=== PATIENT | male | born 1935 | race African-American/Black ===

== ENCOUNTER 2021-05-11 17:04 | Inpatient (IN) | payer MEDICARE, OTHER ==
[~2021-05-11] VITALS: Ht 180.3 cm; Wt 68.0 kg
--- NOTE | 2021-05-11 17:47 | PHYS DOC ---
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 Patient has a history of Alzheimer's/dementia majority of the history comes from EMS and from the lead technologist in cytogenetics at the bedside. Field Advisor at the bedside said that patient normally with assistance will ambulate to the bathroom, and will use the restroom and then ambulate back to the bed with assistance, today caregiver was not at the house a grandson was at the house and patient attempted to get out of bed by himself and fell. Grandson was unable to get the patient off the ground then called 911. While 911 was at the scene patient had a hypotensive episode, saline lock was started and IV fluids of LR 500 mg bolus was given. Per the lead technologist in cytogenetics patient has a history of a stroke in the with the second 1 in the , patient has had severe right sided contractures and weakness due to his strokes and needs full-time care. [facility] but [facility]. Patient is blind and has severe dysarthria from his stroke. Most of the history for this patient was obtained from the lead technologist in cytogenetics at the bedside (KOMAL NEWELL APRN) Review of Systems: Review of Systems: Constitutional: Denies fever or chills Eyes: Denies change in visual acuity HENT: Denies nasal congestion or sore throat Respiratory: Denies cough or shortness of breath Cardiovascular: Denies chest pain or edema GI: Denies abdominal pain, nausea, vomiting, bloody stools or diarrhea : Denies dysuria Musculoskeletal: Denies back pain or joint pain Integument: Denies rash Neurologic: Denies headache, focal weakness or sensory changes Endocrine: Denies polyuria or polydipsia Lymphatic: Denies swollen glands Psychiatric: Denies depression or anxiety Hypotension (KOMAL NEWELL APRN) Current Medications: Current Meds: Nifedipine 90 mg Choleca/cif 25mg lisinopril 40mg rosuvastatin 40mg ensure (KOMAL NEWELL BUILDING EQUIPMENT INSPECTOR) Allergies: Allergies: Allergies Coded Allergies Type Severity Reaction Last Updated Verified No Known Drug Allergies 05/11/21 No (KOMAL NEWELL APRN) Physical Exam: PE: Constitutional: Well developed, well nourished, no acute distress, non-toxic appearance. [] HENT: Normocephalic, atraumatic, bilateral external ears normal, oropharynx moist, no oral exudates, nose normal, no teeth [] Eyes: PERRLA, EOMI, conjunctiva normal, no discharge. [] Neck: Normal range of motion, no tenderness, supple, no stridor, no midline tenderness [] Cardiovascular:Heart rate regular rhythm, no murmur [] Lungs & Thorax: Bilateral breath sounds clear to auscultation [] Abdomen: Bowel sounds normal, soft, no tenderness, no masses, no pulsatile masses. [] Skin: Warm, dry, no erythema, no rash. [] Back: No tenderness, no CVA tenderness. [] Extremities: Inspection and palpation of all extremities was completed no lacerations, abrasions, contusions, or ecchymosis was noted, 2+ pulses through out the extremities, patient does have the right arm which is contracted to his chest, normal for his for this patient. No pain with pressure along the pelvic rim and over the symphysis pubis. Neurologic: Alert and oriented to self, right arm is contracted to his chest, will clenched fist when asked but unable to perform extension and flexion of the arm, ambulation was deferred at this time due to fall Psychologic: Affect normal, judgement abnormal patient does not have good judgment due to dementia, mood normal. [] (KOMAL NEWELL BUILDING EQUIPMENT INSPECTOR) Current Patient Data: Labs: Laboratory Tests Test 05/11/21 17:45 White Blood Count 6.4 x10^3/uL Red Blood Count 3.56 x10^6/uL Hemoglobin 11.9 g/dL Hematocrit 36.5 % Mean Corpuscular Volume 102 fL Mean Corpuscular Hemoglobin 33 pg Mean Corpuscular Hemoglobin Concent 33 g/dL Red Cell Distribution Width 13.6 % Platelet Count 219 x10^3/uL Neutrophils (%) (Auto) 53 % Lymphocytes (%) (Auto) 36 % Monocytes (%) (Auto) 8 % Eosinophils (%) (Auto) 2 % Basophils (%) (Auto) 1 % Neutrophils # (Auto) 3.4 x10^3uL Lymphocytes # (Auto) 2.3 x10^3/uL Monocytes # (Auto) 0.5 x10^3/uL Eosinophils # (Auto) 0.1 x10^3/uL Basophils # (Auto) 0.1 x10^3/uL Sodium Level 141 mmol/L Potassium Level 4.9 mmol/L Chloride Level 107 mmol/L Carbon Dioxide Level 25 mmol/L Anion Gap 9 Blood Urea Nitrogen 23 mg/dL Creatinine 1.5 mg/dL Estimated GFR (Cockcroft-Gault) 53.7 BUN/Creatinine Ratio 15 Glucose Level 101 mg/dL Calcium Level 8.9 mg/dL Total Bilirubin 0.2 mg/dL Aspartate Amino Transf (AST/SGOT) 16 U/L Alanine Aminotransferase (ALT/SGPT) 15 U/L Alkaline Phosphatase 58 U/L Troponin I High Sensitivity 13 ng/L Total Protein 7.3 g/dL Albumin 3.6 g/dL Albumin/Globulin Ratio 1.0 Vital Signs: Vital Signs Date Time Temp Pulse Resp B/P (MAP) Pulse Ox O2 Delivery O2 Flow Rate FiO2 05/11/21 21:10 81 19 120/66 (84) 98 Room Air 05/11/21 20:30 80 18 112/53 (72) 99 Room Air 05/11/21 19:53 70 18 115/68 (84) 100 Room Air 05/11/21 18:45 69 16 115/66 (82) 100 Room Air 05/11/21 18:06 63 18 93/65 (74) 98 Room Air 05/11/21 17:34 70 20 100/70 (80) 98 Room Air 05/11/21 17:18 98.1 76 20 119/42 (67) 100 Room Air Vital Signs Date Time Temp Pulse Resp B/P (MAP) Pulse Ox O2 Delivery O2 Flow Rate FiO2 05/11/21 17:18 98.1 76 20 119/42 (67) 100 Room Air Vital Signs Date Time Temp Pulse Resp B/P (MAP) Pulse Ox O2 Delivery O2 Flow Rate FiO2 05/11/21 17:18 98.1 76 20 119/42 (67) 100 Room Air (KOMAL NEWELL BUILDING EQUIPMENT INSPECTOR) EKG: EK EKG done read by Dr. Suggs at 1716 no STEMI heart rate of 65 interpretation is sinus rhythm MT interval 136 ms with a QT interval of 368 ms [] (KOMAL NEWELL APRN) Radiology/Procedures: Radiology/Procedures: REASON: fall PROCEDURE: CT HEAD AND CERVICAL SPINE WO EXAM: CT HEAD WITHOUT IV CONTRAST CLINICAL HISTORY: Reason: fall / Spl. Instructions: / History: COMPARISON: None. TECHNIQUE: Routine CT of the head without contrast. Soft tissues and bone windows were reviewed. PQRS compliance statement - One or more of the following individualized dose reduction techniques were utilized for this study: 1. Automated exposure control 2. Adjustment of the mA and/or kV according to patient size 3. Use of iterative reconstruction technique FINDINGS: There is no evidence of hemorrhage, mass or extra-axial fluid collection. Aburto-white differentiation is maintained with no evidence of edema. Subcortical, periventricular as well as deep white matter foci of hypoattenuation likely changes of chronic small vessel disease. Old infarct left parietotemporal region with associated encephalomalacia. There is no mass effect or shift of the intracranial structures. Diffuse dural based calcifications are seen. The ventricles and cerebral sulci are prominent for the patients stated age consistent with generalized cerebral volume loss. The cerebellum and brainstem are unremarkable. The calvarium demonstrates no evidence of fracture or focal lesion. There is normal aeration of the visualized paranasal sinuses and mastoid air cells. The visualized portions of the orbits are normal.Atherosclerotic calcifications of the intracranial internal carotid and vertebral arteries is seen. IMPRESSION: 1. No evidence for acute intracranial process. 2. The ventricles and cerebral sulci are prominent for the patients stated age consistent with generalized cerebral volume loss 3. White matter change likely chronic small vessel disease. Rounded lucency in the subcortical white matter of the left parietotemporal region likely from prior infarct and encephalomalacia. EXAM: CT CERVICAL SPINE WITHOUT IV CONTRAST CLINICAL HISTORY: Reason: fall / Spl. Instructions: / History: COMPARISON: None available. TECHNIQUE: Helical CT of the cervical spine was performed. Axial, coronal and sagittal reformatted images were also performed. PQRS compliance statement - One or more of the following individualized dose reduction techniques were utilized for this study: 1. Automated exposure control 2. Adjustment of the mA and/or kV according to patient size 3. Use of iterative reconstruction technique FINDINGS: Vertebral body heights are preserved. Mild C2-3, C3-4 and moderate to severe C5-6, C6-7 and C7-T1 disc height loss. Trace anterolisthesis of C7 on T1 likely degenerative. Otherwise no spondylolisthesis. IMPRESSION: 1. Multilevel spondylosis as above 2. Negative acute fracture. 3. Trace anterolisthesis of C7 on T1 likely degenerative. Electronically signed by: Hilton Shaw MD (05/11/2021 7:03 PM) [facility] DICTATED AND SIGNED BY: HILTON SHAW MD DATE: 05/11/211855 CC: MERARI VELASQUEZ MD; KOMAL NEWELL APRN; PCP,UNKNOWN ~MTH0 0 REASON: fall PROCEDURE: CT CHEST ABDOMEN PELVIS WO EXAM: CT Chest, Abdomen and Pelvis without IV contrast CLINICAL HISTORY: Fall, pain COMPARISON: None. TECHNIQUE: Helical CT of the chest, abdomen and pelvis was performed without intravenous contrast. Axial, coronal and sagittal reformatted images were generated. ---PQRS compliance statement - One or more of the following individualized dose reduction techniques were utilized for this study: 1. Automated exposure control 2. Adjustment of the mA and/or kV according to patient size 3. Use of iterative reconstruction technique--- FINDINGS: Lack of intravenous contrast limits evaluation of solid organs, vasculature, and lymph nodes. Chest: Emphysematous changes are seen. Interstitial prominence particularly in the lung bases and upper lungs. No suspicious lung nodule or mass is seen. No lobar consolidation. Heart is not enlarged. Coronary calcifications are seen. No pericardial effusion. No pleural effusion. No pneumothorax. No axillary lymphadenopathy. No mediastinal or hilar lymphadenopathy. A few mildly prominent mediastinal lymph nodes are likely physiologic. Abdomen and Pelvis: No focal liver lesion. Gallbladder is normal. No biliary ductal dilatation. Pancreas is unremarkable. Spleen is normal in appearance. Adrenal glands are unremarkable. Multiple bilateral renal cysts are seen. No hydronephrosis. No hydroureter. Bladder is unremarkable. Prostate is mildly enlarged measuring 5.6 cm in transverse dimension. Calcifications are seen within the prostate. Aortobiiliac atherosclerotic calcifications are seen. No abdominal or pelvic lymphadenopathy. No free or loculated abdominal or pelvic collection is seen. Moderate to large volume colonic stool content is seen. No small or large bowel dilatation. Appendix is normal. No retroperitoneal hematoma is identified. No aggressive osseous lesion is seen. Sclerotic lesion right first rib measures approximately 1000 Hounsfield units, favored to represent bone island. Leftward curvature of the lower lumbar spine. Rightward curvature of the thoracic spine. Multilevel degenerative changes of spine are seen. IMPRESSION: No CT evidence for acute thoracic, abdominal or pelvic trauma. Incidental findings as above. Electronically signed by: Hilton Shaw MD (05/11/2021 7:32 PM) [facility] [] (KOMAL NEWELL APRN) Heart Score: C/O Chest Pain: N/A Risk Factors: Risk Factors: DM, Current or recent (<one month) smoker, HTN, HLP, family history of CAD, obesity. Risk Scores: Score 0 - 3: 2.5% MACE over next 6 weeks - Discharge Home Score 4 - 6: 20.3% MACE over next 6 weeks - Admit for Clinical Observation Score 7 - 10: 72.7% MACE over next 6 weeks - Early Invasive Strategies (KOMAL NEWELL APRN) Course & Med Decision Making: Course & Med Decision Making Pertinent Labs and Imaging studies reviewed. (See chart for details) 2000 spoke to and patient informed them of the laboratory and radiological findings due to the unusual nature of the fall is the best interest of the patient to admit patient for further evaluation by the primary care team. is the primary decision maker for the patient and she is agreeable to admission. Spoke to Dr. Marie who is a the hospitalist on-call and he has accepted the patient for admission, he would like 1 more liter of IV fluids to be given and then a maintenance fluids of 100 mL an hour of normal saline to be infused and he would like to hold all of his blood pressure medications at this time] (KOMAL NEWELL APRN) Course & Med Decision Making Did not see or evaluate patient. Did not discuss patient with MICROFILMER. Agree with MICROFILMER's work-up and disposition per note. (MERARI VELASQUEZ MD) Arlene Disclaimer: Dragon Disclaimer: This electronic medical record was generated, in whole or in part, using a voice recognition dictation system. (KOMAL NEWELL APRN) Departure Departure: Impression: Primary Impression: Hypotension Qualified Codes: I95.9 - Hypotension, unspecified Additional Impressions: Syncope Qualified Codes: R55 - Syncope and collapse Fall Qualified Codes: W19.XXXA - Unspecified fall, initial encounter Disposition: ADMITTED INPATIENT Admitting Physician: Najma Jones (KOMAL NEWELL APRN) Condition: STABLE Referrals: PCP,UNKNOWN (PCP) KOMAL NEWELL APRN May 11, 2021 17:47 MERARI VELASQUEZ MD May 11, 2021 23:40
--- NOTE | 2021-05-11 18:19 | EKG ---
[address] [address] Test Date: 2021-05-11 Test Time: 17:10:08 Pat Name: ANDRES FOSTER Department: Room: Gender: M Deputy Chief Magistrate: JOSE RAFAEL : 1935 Requested By: KOMAL NEWELL Order Number: [id number] Reading MD: Bravo Levy MD Measurements Intervals [place] Rate: 65 P: 90 SC: 136 QRS: 48 QRSD: 72 T: 66 QT: 368 QTc: 383 Interpretive Statements SINUS RHYTHM Electronically Signed On 05-11-2021 20:17:36 CASE LOADER OPERATOR by Bravo Levy MD
[2021-05-11 18:22] LABS: BASO # 0.1 x10^3/uL (0.0-0.2); BASO % 1 % (0-3); EOS # 0.1 x10^3/uL (0.0-0.7); EOS % 2 % (0-3); HEMATOCRIT 36.5 % (39.0-53.0); HEMOGLOBIN 11.9 g/dL (13.0-17.5); LYMPH # 2.3 x10^3/uL (1.0-4.8); LYMPH % 36 % (24-48); MEAN CORPUSCULAR HEMOGLOBIN 33 pg (25-35); MEAN CORPUSCULAR HGB CONC 33 g/dL (31-37); MEAN CORPUSCULAR VOLUME 102 fL (79-100); MONO # 0.5 x10^3/uL (0.0-1.1); MONO % 8 % (0-9); NEUT # 3.4 x10^3uL (1.8-7.7); NEUT % 53 % (31-73); PLATELET COUNT 219 x10^3/uL (140-400); RED BLOOD COUNT 3.56 x10^6/uL (4.30-5.70); RED CELL DISTRIBUTION WIDTH 13.6 % (11.5-14.5); WHITE BLOOD COUNT 6.4 x10^3/uL (4.0-11.0)
[2021-05-11 18:24] LABS: CALCIUM 8.9 mg/dL (8.5-10.1); CREATININE 1.5 mg/dL (0.7-1.3); GFR 53.7; POTASSIUM 4.9 mmol/L (3.5-5.1)
[2021-05-11 18:30] LABS: ALBUMIN 3.6 g/dL (3.4-5.0); TOTAL BILIRUBIN 0.2 mg/dL (0.2-1.0); TOTAL PROTEIN 7.3 g/dL (6.4-8.2)
--- NOTE | 2021-05-11 19:05 | RAD ---
EXAM: CT HEAD WITHOUT IV CONTRAST CLINICAL HISTORY: Reason: fall / Spl. Instructions: / History: COMPARISON: None. TECHNIQUE: Routine CT of the head without contrast. Soft tissues and bone windows were reviewed. PQRS compliance statement - One or more of the following individualized dose reduction techniques wer e utilized for this study: 1. Automated exposure control 2. Adjustment of the mA and/or kV according to patient size 3. Use of iterative reconstruction technique FINDINGS: There is no evidence of hemorrhage, mass or extra-axial fluid collection. Aburto-white differentiation is maintained with no evidence of edema. Subcortical, periventricular as w ell as deep white matter foci of hypoattenuation likely changes of chronic small vessel disease. Old infarct left parietotemporal region with associated encephalomalacia. There is no mass effect or shift of the intracranial structures. Diffuse dural based calcifications a re seen. The ventricles and cerebral sulci are prominent for the patients stated age consistent with generaliz ed cerebral volume loss. The cerebellum and brainstem are unremarkable. The calvarium demonstrates no evidence of fracture or focal lesion. There is normal aeration of the visualized paranasal sinuses and mastoid air cells. The visualized portions of the orbits are normal.Atherosclerotic calcifications of the intracranial i nternal carotid and vertebral arteries is seen. IMPRESSION: 1. No evidence for acute intracranial process. 2. The ventricles and cerebral sulci are prominent for the patients stated age consistent with gener alized cerebral volume loss 3. White matter change likely chronic small vessel disease. Rounded lucency in the subcortical white matter of the left parietotemporal region likely from prior infarct and encephalomalacia. EXAM: CT CERVICAL SPINE WITHOUT IV CONTRAST CLINICAL HISTORY: Reason: fall / Spl. Instructions: / History: COMPARISON: None available. TECHNIQUE: Helical CT of the cervical spine was performed. Axial, coronal and sagittal reformatted im ages were also performed. PQRS compliance statement - One or more of the following individualized dose reduction techniques wer e utilized for this study: 1. Automated exposure control 2. Adjustment of the mA and/or kV according to patient size 3. Use of iterative reconstruction technique FINDINGS: Vertebral body heights are preserved. Mild C2-3, C3-4 and moderate to severe C5-6, C6-7 and C7-T1 disc height loss. Trace anterolisthesis o f C7 on T1 likely degenerative. Otherwise no spondylolisthesis. IMPRESSION: 1. Multilevel spondylosis as above 2. Negative acute fracture. 3. Trace anterolisthesis of C7 on T1 likely degenerative. Electronically signed by: Hilton Little MD (05/11/2021 7:03 PM) [facility]
--- NOTE | 2021-05-11 19:35 | RAD ---
EXAM: CT Chest, Abdomen and Pelvis without IV contrast CLINICAL HISTORY: Fall, pain COMPARISON: None. TECHNIQUE: Helical CT of the chest, abdomen and pelvis was performed without intravenous contrast. Ax ial, coronal and sagittal reformatted images were generated. ---PQRS compliance statement - One or more of the following individualized dose reduction techniques were utilized for this study: 1. Automated exposure control 2. Adjustment of the mA and/or kV according to patient size 3. Use of iterative reconstruction technique--- FINDINGS: Lack of intravenous contrast limits evaluation of solid organs, vasculature, and lymph nodes. Chest: Emphysematous changes are seen. Interstitial prominence particularly in the lung bases and upper lung s. No suspicious lung nodule or mass is seen. No lobar consolidation. Heart is not enlarged. Coronary calcifications are seen. No pericardial effusion. No pleural effusion . No pneumothorax. No axillary lymphadenopathy. No mediastinal or hilar lymphadenopathy. A few mildly prominent mediasti nal lymph nodes are likely physiologic. Abdomen and Pelvis: No focal liver lesion. Gallbladder is normal. No biliary ductal dilatation. Pancreas is unremarkable. Spleen is normal in appearance. Adrenal glands are unremarkable. Multiple bilateral renal cysts are seen. No hydronephrosis. No hydroureter. Bladder is unremarkable. Prostate is mildly enlarged measuring 5.6 cm in transverse dimension. Calcifications are seen within the prostate. Aortobiiliac atherosclerotic calcifications are seen. No abdominal or pelvic lymphadenopathy. No free or loculated abdominal or pelvic collection is seen. Moderate to large volume colonic stool c ontent is seen. No small or large bowel dilatation. Appendix is normal. No retroperitoneal hematoma i s identified. No aggressive osseous lesion is seen. Sclerotic lesion right first rib measures approximately 1000 Ho unsfield units, favored to represent bone island. Leftward curvature of the lower lumbar spine. Right umanzor curvature of the thoracic spine. Multilevel degenerative changes of spine are seen. IMPRESSION: No CT evidence for acute thoracic, abdominal or pelvic trauma. Incidental findings as above. Electronically signed by: Hilton Little MD (05/11/2021 7:32 PM) [facility]
[2021-05-11] MEDS ORDERED: IV NORMAL SALINE 1,000ML 1,000 ML IV ONE (20:15)
[2021-05-11 20:40] LABS: BACTERIA,URINE 0 /HPF (0-FEW); BILIRUBIN,URINE NEG (NEG); CLARITY,URINE CLEAR; COLOR,URINE YELLOW; GLUCOSE,URINE NEG (NEG); NITRITE,URINE NEG (NEG); RBC,URINE 0 /HPF (0-2); UROBILINOGEN,URINE 0.2 mg/dL (0.2 mg/dL); WBC,URINE 0 /HPF (0-4)
[2021-05-11 20:41] LABS: SQUAMOUS EPITHELIAL CELL,UR OCC /LPF
--- NOTE | 2021-05-11 21:05 | RAD ---
EXAM: CHEST 1 VIEW History: Fall COMPARISON: None available. TECHNIQUE: Single portable radiograph of the chest FINDINGS: The cardiac silhouette is unremarkable. The lungs are clear bilaterally. The costophrenic sulci are clear and well demarcated. IMPRESSION: No radiographic evidence of an acute cardiopulmonary process. Electronically signed by: Gabe Rowell MD (05/11/2021 9:03 PM) [id number]
[2021-05-11] MEDS: MELATONIN 3 MG TABLET PO PRN (21:48)
[2021-05-11] MEDS ORDERED: IV RINGERS SOLUTION,LACTATED 1,000 ML IV ONE (23:30)
[2021-05-11] MEDS: IV NORMAL SALINE 1,000ML 1,000 ML IV SCH (23:52)
[2021-05-12] MEDS: IV NORMAL SALINE 1,000ML 1,000 ML IV SCH ×2 (06:15→14:38)
[2021-05-12 08:50] VITALS: BP 134/79
[2021-05-12 10:55] VITALS: BP 138/78
[2021-05-12] MEDS ORDERED: LISI40TA6 PO (11:34)
[2021-05-12] MEDS ORDERED: NIFE60TA14 PO (11:34)
[2021-05-12] MEDS ORDERED: ROSUVASTATIN CA40 MG PO (11:34)
[2021-05-12 13:50] VITALS: BP 145/79
[2021-05-12 13:55] VITALS: BP 122/73
[2021-05-12 14:05] VITALS: BP 113/67
--- NOTE | 2021-05-12 17:13 | HP ---
DATE OF SERVICE: 05/12/2021 ADMIT DATE: 05/12/2021 HISTORY OF PRESENT ILLNESS: The patient is an 86-year-old -[place] male patient who presented this morning to [facility] Emergency Room via [facility] with a fall and hypertension. The patient is known to have history of Alzheimer's dementia. Majority of the history comes from EMS and from the nanny caregiver at the bedside. His nanny caregiver at the bedside said that the patient normally ambulates with assistance to the bathroom and will use the restroom and then ambulates back to the bed with assistance. Today, the caregiver was not at the house and grandson was at the house. The patient attempted to get out of the bed by himself and fell. Grandson was unable to get the patient off the ground and therefore, he called 911. While 911 was at the scene, the patient had a hypertensive episode, saline lock was started and IV fluid of LR 500 mL bolus was given. Per his , the patient has a history of a stroke in , again the second one in . The patient has severe right-sided contracture and weakness due to his stroke and needs full-time care. [facility] but [facility] because [facility]. The patient is blind and has severe dysarthria from his stroke. Most of the history was obtained from his at the bedside. He was extensively investigated in the Emergency Room, has had lab work and imaging studies. His lab work was mostly unremarkable, has normochromic normocytic anemia. His chemistry showed that he has slightly impaired kidney function. Unfortunately, I have no other lab work to compare with. A chest x-ray was done and was also mostly unremarkable. Had CT scan of the head and cervical spine that were basically unremarkable with no evidence of acute intracranial process, the ventricles and sulci and cerebral sulci are prominent for the patient's stated age consistent with generalized cerebral atrophy, white matter changes, likely chronic small-vessel disease, rounded lucency in the subcortical white matter of the left parietotemporal region, likely from prior infarct and encephalomalacia. The cervical spine showed multilevel spondylosis, negative acute fracture, trace anterolisthesis of C7 on T1, likely degenerative in nature. His blood pressure on arrival was borderline. In fact, the patient has received 2 liters of fluid and was admitted to continue on IV fluid. PAST MEDICAL HISTORY: Significant for cerebrovascular accidents, one in and the other one is 1989. 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 He is known to have hypertension, glaucoma. 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 PAST SURGICAL HISTORY: Unremarkable. ALLERGIES: He has no known drug allergies. MEDICATIONS: He is currently on the following medications: He is on nifedipine 60 mg once a day, lisinopril 40 mg once a day and Crestor 40 mg daily. FAMILY HISTORY: All his siblings are . SOCIAL HISTORY: He is , has one daughter from his second . He has six children from a previous marriage. He smokes 3 cigarettes a day. He does not drink alcohol. 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 REVIEW OF SYSTEMS: As per history of present illness. PHYSICAL EXAMINATION: GENERAL: On arrival to the Emergency Room, he looked well and was clearly in no apparent distress, slightly pale, but no jaundiced or cyanosed, no thyromegaly. No jugular venous distention. No lower limb edema. VITAL SIGNS: His heart rate was 76, blood pressure is 119/42, temperature was 98.1, respiratory rate 20, and oxygen saturation was 100% on room air. HEAD, EYES, EARS, NOSE, AND THROAT: Normocephalic, atraumatic. NECK: Supple. HEART: Showed normal first and second heart sounds. No gallop, rub or murmur. CHEST: Clear to auscultation, no crepitation or rhonchi. ABDOMEN: Scaphoid, soft, nontender. NEUROLOGIC: He was demented and has right-sided hemiplegia. LABORATORY DATA: His lab work on arrival showed his white cell count to be 6400, hemoglobin 12, hematocrit 36, MCV 102 and platelet count of 219,000. His chemistry showed a serum sodium 141, potassium 4.9, chloride 107, bicarbonate 25, anion gap of 9, BUN 23, creatinine 1.5. Estimated GFR was 54 mL per minute. His glucose 101, calcium was 8.9. Total bilirubin, AST, ALT, alkaline phosphatase were normal. Total protein 7.3, albumin was 3.6. Urinalysis essentially unremarkable and his coronavirus by laboratory testing was negative. He apparently has received 2 vaccines as well as the boosters. His chest x-ray showed no radiographic evidence of acute pulmonary process. CT scan of the head and cervical spine showed no evidence of acute intracranial process, the ventricles and cerebral sulci are prominent for the patient's stated age, consistent with generalized cerebral volume loss, white matter changes, likely chronic small vessel disease, rounded lucency in the subcortical white matter of the left parietotemporal region, likely from prior infarct and encephalomalacia. The CT scan of cervical spine showed multilevel spondylosis and negative acute fracture, trace anterolisthesis of C7 on T1 and likely degenerative. CT scan of the chest, abdomen and pelvis showed no CT evidence of acute thoracic, abdominal, or pelvic trauma. Incidental finding of multiple bilateral renal cysts are seen. No hydronephrosis and no hydroureter. The bladder is unremarkable, prostate is mildly enlarged measuring 5.6 cm in transverse dimension, calcification are seen within the prostate, aortoiliac atherosclerotic calcification are seen. No abdominal or pelvic lymphadenopathy. The patient has no free or loculated abdominal pelvic collection seen. Moderate to large volume of colonic stool content are seen, no abnormal large bowel dilatation. Appendix is normal. No retroperitoneal hematoma is identified. No aggressive osseous lesion is seen. Sclerotic lesion, right first rib, measures approximately 1000 Hounsfield units, but save at 30% to represent a bone island, leftward curvature of the lumbar spine, rightward curvature of the thoracic spine, multilevel degenerative changes of the spine are seen. IRENE/ARELI/IQB DR: Teri TID: [id number]
[2021-05-13] VITALS: BP 145/76
[2021-05-13] MEDS: MELATONIN 3 MG TABLET PO PRN (00:31)
[2021-05-13 05:17] VITALS: BP 143/71
[2021-05-13] MEDS ORDERED: OLANZapine IM 10 MG VIAL. IM PRN (07:30)
[2021-05-13 08:21] LABS: CALCIUM 8.3 mg/dL (8.5-10.1); CREATININE 1.2 mg/dL (0.7-1.3); GFR 69.5
[2021-05-13 10:35] VITALS: BP 169/82
[2021-05-13] MEDS ORDERED: MELATONIN 3 MG TABLET PO ONE (13:15)
[2021-05-13 14:37] VITALS: BP 134/70
[2021-05-13 18:07] VITALS: BP 133/61
[2021-05-13] MEDS: traZODone 100 MG TABLET. PO SCH (20:02)
[2021-05-14 06:14] LABS: HEMATOCRIT 36.5 % (39.0-53.0); HEMOGLOBIN 12.2 g/dL (13.0-17.5); RED BLOOD COUNT 3.64 x10^6/uL (4.30-5.70); RED CELL DISTRIBUTION WIDTH 13.3 % (11.5-14.5); WHITE BLOOD COUNT 7.8 x10^3/uL (4.0-11.0)
[2021-05-14 06:26] VITALS: BP 145/73
[2021-05-14 06:27] LABS: ALBUMIN 3.4 g/dL (3.4-5.0); ALBUMIN/GLOBULIN RATIO 0.9 (1.0-1.7); CALCIUM 8.7 mg/dL (8.5-10.1); CREATININE 1.2 mg/dL (0.7-1.3); GFR 69.5; POTASSIUM 3.6 mmol/L (3.5-5.1); TOTAL BILIRUBIN 0.5 mg/dL (0.2-1.0); TOTAL PROTEIN 7.1 g/dL (6.4-8.2)
--- NOTE | 2021-05-14 06:52 | CONS ---
DATE OF CONSULTATION: 05/13/2021 PSYCHIATRIC CONSULTATION IDENTIFYING DATA: The patient is an 86-year-old -[place] male seen in bed 125, [address] [facility] for a psychiatric consult requested by Dr. Jones on account of the patient's worsening dementia, confusion with behavioral disturbance. He was admitted via the Emergency Room, status post fall and a history of hypertension, confusion, psychosis, agitation. He does have a premorbid history of Alzheimer's/vascular dementia. The patient was found on the floor, 911 was called by the grandson. Reportedly, he had a hypertensive episode. He does have a history of CVA in 1979 again in 1989 and has significant contracture, weakness due to a stroke, needing full-time care. Per nursing report, the patient's agitation, confusion are better today as compared to yesterday. CHIEF COMPLAINT: "Where am I." The patient was informed that he was at [facility] and seemed to express understanding. HISTORY OF PRESENT ILLNESS: The patient reportedly has a history of dementia, vascular, possibly Alzheimer's type. He has been residing at home with family and had the above episode with worsening confusion. CT head was unremarkable with no acute changes. No active suicidal or homicidal ideation. He has been wearing mitts. Otherwise, he was pulling on IV lines. No history of bipolar disorder. PAST PSYCHIATRIC HISTORY: As above. MEDICAL HISTORY: Status post cerebrovascular accident as noted. He has a severe left middle cerebral artery infarct with right-sided hemiplegia and dysarthria. History of glaucoma, hypertension, blind in both eyes. ALLERGIES: Negative. FAMILY HISTORY: Noncontributory. SOCIAL HISTORY: The patient is , has one daughter from his second . He has 6 children from a previous marriage. He is a smoker, but does not use alcohol. REVIEW OF SYSTEMS: Ambulation impaired. He still had mitts on in place. No CV, , pulmonary, eye, ENT system symptoms on review, though he does admit to bilateral blindness. MENTAL STATUS EXAM: Oriented to himself. Insight, judgment, recent and remote memory, attention, concentration, fund of knowledge poor consistent with his diagnosis. 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 PLAN: The patient has been on IM Zyprexa, but per nursing report, he is doing better and we will change it to oral Zyprexa 2.5 mg q. 2 hours p.r.n., psychosis, agitation, max 10 mg in 24 hours. Maintain rest of the psychotropics unchanged. Once he recovers medically, we will see his baseline status and then decide on further interventions including needing to be in the inpatient psychiatry service, but only if clinically indicated. Dr. Jones thank you for the opportunity to participate in your patient's care. We will follow with you. JENNY DR: Samantha TID: [id number]
[2021-05-14] MEDS: LISINOPRIL 20 MG TABLET PO SCH (08:51)
--- NOTE | 2021-05-14 09:31 | PN ---
DATE: 05/13/2021 SUBJECTIVE: The patient has been extremely restless, agitated, attempts to get out of the bed. He apparently was given one dose of Zyprexa and melatonin last night, but he has not slept the whole night. He apparently attempts to get to the bathroom, but when he was taken there, he did not urinate or have a bowel movement. Urinal was given to him. Also, he had just only few dribbles we did scan his bladder and it was only about around 230 mL of urine. He was very weak and unsteady on his feet and was unable to walk. According to his , he is normally able to walk and she usually assists him to go to the bathroom and back. He is not using any walker or a cane. PHYSICAL EXAMINATION: GENERAL: When I examined him this morning, he was somewhat pale, but no jaundice, cyanosis or thyromegaly. No jugular venous distention. No limb edema. VITAL SIGNS: His heart rate was 68, blood pressure was 169/82, temperature was 98, respiratory rate was 18, and oxygen saturation was 94% on room air. HEAD, EYES, EARS, NOSE, AND THROAT: Normocephalic, atraumatic. NECK: Supple. HEART: Normal first and second heart sounds. No gallop, rub, or murmur. CHEST: Clear to auscultation. No crepitation or rhonchi. ABDOMEN: Scaphoid, soft, and nontender. NEUROLOGIC: He is demented, blind. All other cranial nerves intact. He moves extremities without difficulty; however, he is very unsteady on his feet. His intake was 2000, no output was recorded. LABORATORY DATA: Showed a white cell count of 6400, hemoglobin 12, hematocrit 36, MCV 102, and platelet count 219,000. Serum sodium this morning was 140, potassium 4, chloride 110, bicarbonate 21, anion gap of 9, BUN 12, creatinine 1.2. Estimated GFR was 69 mL per minute. His glucose was 80. Calcium was 8.3. ASSESSMENT AND PLAN: 1. Weakness with fall and hypotension, resolved. The patient was rehydrated and his blood pressure has improved. 2. The patient has multiple cerebrovascular accidents, one 1979 and one in 1989. 3. Has left middle cerebral artery territory infarct with right-sided hemiplegia and dysarthria. 4. Hypertension. 5. Glaucoma. In fact, he is blind in both eyes. 6. He has severe dementia with sundowning. The patient has not slept the whole night and has been very restless, agitated, was very unsteady on his feet. The patient's states she is unable to take care of him and was wondering if he can be admitted to a rehab center. LENKA/PONCHO DR: Teri TID: [id number]
--- NOTE | 2021-05-14 10:13 | PDOC ---
Exam Note: Naveen Note: Late entry for 05/13/2021. Please also refer to the separate dictated note~for this date of service dictated separately.~Patient seen individually. Discussed the patient with Nursing staff reviewed the chart.~Reviewed interim history and current functioning. Reviewed vital signs,~Labs/ Radiology~and current medic ations noted below. Continue current treatment with the changes noted in the dictated addendum note Assessment: Vital Signs/I&O: Vital Signs Date Time Temp Pulse Resp B/P (MAP) Pulse Ox O2 Delivery O2 Flow Rate FiO2 05/14/21 08:51 92 145/73 05/14/21 06:26 98.2 18 98 Room Air I & O 05/13/21 05/13/21 05/14/21 14:59 22:59 06:59 Intake Total 240 ml 20 ml 0 ml Balance 240 ml 20 ml 0 ml Labs: Laboratory Tests Test 05/14/21 06:00 White Blood Count 7.8 x10^3/uL (4.0-11.0) Red Blood Count 3.64 x10^6/uL (4.30-5.70) L Hemoglobin 12.2 g/dL (13.0-17.5) L Hematocrit 36.5 % (39.0-53.0) L Mean Corpuscular Volume 100 fL (79-100) Mean Corpuscular Hemoglobin 34 pg (25-35) Mean Corpuscular Hemoglobin Concent 34 g/dL (31-37) Red Cell Distribution Width 13.3 % (11.5-14.5) Platelet Count 230 x10^3/uL (140-400) Sodium Level 143 mmol/L (136-145) Potassium Level 3.6 mmol/L (3.5-5.1) Chloride Level 108 mmol/L (98-107) H Carbon Dioxide Level 24 mmol/L (21-32) Anion Gap 11 (6-14) Blood Urea Nitrogen 11 mg/dL (8-26) Creatinine 1.2 mg/dL (0.7-1.3) Estimated GFR (Cockcroft-Gault) 69.5 BUN/Creatinine Ratio 9 (6-20) Glucose Level 80 mg/dL (70-99) Calcium Level 8.7 mg/dL (8.5-10.1) Total Bilirubin 0.5 mg/dL (0.2-1.0) Aspartate Amino Transferase (AST) 52 U/L (15-37) H Alanine Aminotransferase (ALT) 19 U/L (16-63) Alkaline Phosphatase 39 U/L (46-116) L Total Protein 7.1 g/dL (6.4-8.2) Albumin 3.4 g/dL (3.4-5.0) Albumin/Globulin Ratio 0.9 (1.0-1.7) L Current Medications: Meds: Laboratory Tests Test 05/14/21 06:00 White Blood Count 7.8 x10^3/uL Red Blood Count 3.64 x10^6/uL Hemoglobin 12.2 g/dL Hematocrit 36.5 % Mean Corpuscular Volume 100 fL Mean Corpuscular Hemoglobin 34 pg Mean Corpuscular Hemoglobin Concent 34 g/dL Red Cell Distribution Width 13.3 % Platelet Count 230 x10^3/uL Sodium Level 143 mmol/L Potassium Level 3.6 mmol/L Chloride Level 108 mmol/L Carbon Dioxide Level 24 mmol/L Anion Gap 11 Blood Urea Nitrogen 11 mg/dL Creatinine 1.2 mg/dL Estimated GFR (Cockcroft-Gault) 69.5 BUN/Creatinine Ratio 9 Glucose Level 80 mg/dL Calcium Level 8.7 mg/dL Total Bilirubin 0.5 mg/dL Aspartate Amino Transf (AST/SGOT) 52 U/L Alanine Aminotransferase (ALT/SGPT) 19 U/L Alkaline Phosphatase 39 U/L Total Protein 7.1 g/dL Albumin 3.4 g/dL Albumin/Globulin Ratio 0.9 Current Medications Medications (Trade) Dose Ordered Sig/Christal Route PRN Reason Start Time Stop Time Status Last Admin Dose Admin Sodium Chloride 1,000 ml @ 1,000 mls/hr 1X ONCE IV 05/11/21 20:15 05/11/21 21:14 DC 05/11/21 20:15 Sodium Chloride 1,000 ml @ 100 mls/hr Q10H IV 05/11/21 20:15 05/12/21 20:14 DC 05/12/21 14:38 Melatonin (Melatonin) 9 mg PRN QHS PRN PO INSOMNIA 05/11/21 20:30 05/13/21 00:31 Lactated Ringer's 1,000 ml @ 1,000 mls/hr 1X ONCE IV 05/11/21 23:30 05/12/21 00:29 DC 05/11/21 23:30 Lorazepam (Ativan Inj) 2 mg 1X ONCE IVP 05/11/21 23:30 05/11/21 23:31 DC 05/11/21 23:01 Olanzapine (ZyPREXA IM) 2.5 mg PRN Q4HRS PRN IM ANXIETY / AGITATION 05/13/21 07:30 05/13/21 07:37 Melatonin (Melatonin) 9 mg 1X ONCE PO 05/13/21 13:15 05/13/21 13:35 DC 05/13/21 13:47 Trazodone HCl (Desyrel) 100 mg QHS PO 05/13/21 21:00 05/13/21 20:02 Lisinopril (Prinivil) 20 mg DAILY PO 05/14/21 09:00 05/14/21 08:51 Nifedipine (Procardia Xl) 60 mg DAILY PO 05/14/21 09:00 05/14/21 08:51 Olanzapine (ZyPREXA ZYDIS) 2.5 mg PRN Q2HRS PRN PO ANXIETY / AGITATION 05/13/21 20:30 05/14/21 01:52 Current Medications Medications (Trade) Dose Ordered Sig/Christal Route PRN Reason Start Time Stop Time Status Last Admin Dose Admin Melatonin (Melatonin) 9 mg 1X ONCE PO 05/13/21 13:15 05/13/21 13:35 DC 05/13/21 13:47 Trazodone HCl (Desyrel) 100 mg QHS PO 05/13/21 21:00 05/13/21 20:02 Lisinopril (Prinivil) 20 mg DAILY PO 05/14/21 09:00 05/14/21 08:51 Nifedipine (Procardia Xl) 60 mg DAILY PO 05/14/21 09:00 05/14/21 08:51 Olanzapine (ZyPREXA ZYDIS) 2.5 mg PRN Q2HRS PRN PO ANXIETY / AGITATION 05/13/21 20:30 05/14/21 01:52 I have reviewed the current psychotropics carefully including drug interactions. Risk benefit ratio favors no change other than as noted in my dictated progress note. Diagnosis: Problems: (1) Major neurocognitive disorder (2) Dementia in Alzheimer's disease with delusions (3) Dementia in Alzheimer's disease with depression (4) Dementia of the Alzheimer's type with early onset with behavioral disturbance (5) Dementia, vascular, with delusions (6) Dementia, vascular, with depression (7) Impulse control disorder, unspecified (8) Anxiety disorder, unspecified ADRIENNE BOUDREAUX MD May 14, 2021 10:13
[2021-05-14 10:53] VITALS: BP 127/79
[2021-05-14] MEDS: NICOTINE 14MG PATCH. TD SCH (12:00)
[2021-05-14 14:41] VITALS: BP 105/52
[2021-05-14 20:44] VITALS: BP 118/68
[2021-05-14] MEDS: traZODone 100 MG TABLET. PO SCH (20:46)
[2021-05-14 23:25] VITALS: BP 146/76
[2021-05-15] VITALS (9 sets, daily range): BP systolic 64–128; BP diastolic 44–76
--- NOTE | 2021-05-15 07:00 | PDOC ---
Exam Note: Naveen Note: Late entry for 05/14/2021. Please also refer to the separate dictated note~for this date of service dictated separately.~Patient seen individually. Discussed the patient with Nursing staff reviewed the chart.~Reviewed interim history and current functioning. Reviewed vital signs,~Labs/ Radiology~and current medic ations noted below. Continue current treatment with the changes noted in the dictated addendum note Assessment: Vital Signs/I&O: Vital Signs Date Time Temp Pulse Resp B/P (MAP) Pulse Ox O2 Delivery O2 Flow Rate FiO2 05/15/21 06:15 97.9 98 18 128/76 (93) 93 Room Air I & O 05/14/21 05/14/21 05/15/21 15:00 23:00 07:00 Intake Total 365 ml 25 ml 0 ml Balance 365 ml 25 ml 0 ml Current Medications: Meds: Current Medications Medications (Trade) Dose Ordered Sig/Christal Route PRN Reason Start Time Stop Time Status Last Admin Dose Admin Sodium Chloride 1,000 ml @ 1,000 mls/hr 1X ONCE IV 05/11/21 20:15 05/11/21 21:14 DC 05/11/21 20:15 Sodium Chloride 1,000 ml @ 100 mls/hr Q10H IV 05/11/21 20:15 05/12/21 20:14 DC 05/12/21 14:38 Melatonin (Melatonin) 9 mg PRN QHS PRN PO INSOMNIA 05/11/21 20:30 05/13/21 00:31 Lactated Ringer's 1,000 ml @ 1,000 mls/hr 1X ONCE IV 05/11/21 23:30 05/12/21 00:29 DC 05/11/21 23:30 Lorazepam (Ativan Inj) 2 mg 1X ONCE IVP 05/11/21 23:30 05/11/21 23:31 DC 05/11/21 23:01 Olanzapine (ZyPREXA IM) 2.5 mg PRN Q4HRS PRN IM ANXIETY / AGITATION 05/13/21 07:30 05/13/21 07:37 Melatonin (Melatonin) 9 mg 1X ONCE PO 05/13/21 13:15 05/13/21 13:35 DC 05/13/21 13:47 Trazodone HCl (Desyrel) 100 mg QHS PO 05/13/21 21:00 05/14/21 20:46 Lisinopril (Prinivil) 20 mg DAILY PO 05/14/21 09:00 05/14/21 08:51 Nifedipine (Procardia Xl) 60 mg DAILY PO 05/14/21 09:00 05/14/21 08:51 Olanzapine (ZyPREXA ZYDIS) 2.5 mg PRN Q2HRS PRN PO ANXIETY / AGITATION 05/13/21 20:30 05/14/21 20:46 Nicotine (Nicoderm Cq 14mg Patch) 1 patch DAILY TD 05/14/21 12:00 Current Medications Medications (Trade) Dose Ordered Sig/Christal Route PRN Reason Start Time Stop Time Status Last Admin Dose Admin Lisinopril (Prinivil) 20 mg DAILY PO 05/14/21 09:00 05/14/21 08:51 Nifedipine (Procardia Xl) 60 mg DAILY PO 05/14/21 09:00 05/14/21 08:51 I have reviewed the current psychotropics carefully including drug interactions. Risk benefit ratio favors no change other than as noted in my dictated progress note. Diagnosis: Problems: (1) Impulse control disorder, unspecified (2) Anxiety disorder, unspecified (3) Dementia, vascular, with depression (4) Dementia, vascular, with delusions (5) Dementia in Alzheimer's disease with depression (6) Dementia in Alzheimer's disease with delusions (7) Dementia of the Alzheimer's type with early onset with behavioral disturbance (8) Major neurocognitive disorder ADRIENNE BOUDREAUX MD May 15, 2021 07:00
--- NOTE | 2021-05-15 07:01 | PDOC ---
Exam Note: Naveen Note: This note is a late entry for 05/14/2021 covers elements not covered in my initial note. Subjective: Patient was seen individually in the evening of 05/14/2021. Discussed with nursing staff, reviewed the chart. Patient remains confused, but not agitated, aggressive. Review of Systems: No CV, , pulmonary, ENT system symptoms on review per nursing staff. 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 Impaired ambulation. Mental Status Exam: The patient is oriented to himself. Insight, judgment, recent and remote memory, attention and concentration, fund of knowledge is poor consistent with his diagnosis. Laboratory Data: Reviewed. Impression: Major neurocognitive disorder, Alzheimer, vascular with delusion, depression behavioral disturbance. Anxiety disorder unspecified. Impulse control disorder unspecified. Plan: Continue current psychotropics from initial note. Adjust further as clinically indicated. Assessment: Vital Signs/I&O: Vital Signs Date Time Temp Pulse Resp B/P (MAP) Pulse Ox O2 Delivery O2 Flow Rate FiO2 05/15/21 06:15 97.9 98 18 128/76 (93) 93 Room Air I & O 05/14/21 05/14/21 05/15/21 15:00 23:00 07:00 Intake Total 365 ml 25 ml 0 ml Balance 365 ml 25 ml 0 ml Current Medications: Meds: Current Medications Medications (Trade) Dose Ordered Sig/Christal Route PRN Reason Start Time Stop Time Status Last Admin Dose Admin Sodium Chloride 1,000 ml @ 1,000 mls/hr 1X ONCE IV 05/11/21 20:15 05/11/21 21:14 DC 05/11/21 20:15 Sodium Chloride 1,000 ml @ 100 mls/hr Q10H IV 05/11/21 20:15 05/12/21 20:14 DC 05/12/21 14:38 Melatonin (Melatonin) 9 mg PRN QHS PRN PO INSOMNIA 05/11/21 20:30 05/13/21 00:31 Lactated Ringer's 1,000 ml @ 1,000 mls/hr 1X ONCE IV 05/11/21 23:30 05/12/21 00:29 DC 05/11/21 23:30 Lorazepam (Ativan Inj) 2 mg 1X ONCE IVP 05/11/21 23:30 05/11/21 23:31 DC 05/11/21 23:01 Olanzapine (ZyPREXA IM) 2.5 mg PRN Q4HRS PRN IM ANXIETY / AGITATION 05/13/21 07:30 05/13/21 07:37 Melatonin (Melatonin) 9 mg 1X ONCE PO 05/13/21 13:15 05/13/21 13:35 DC 05/13/21 13:47 Trazodone HCl (Desyrel) 100 mg QHS PO 05/13/21 21:00 05/14/21 20:46 Lisinopril (Prinivil) 20 mg DAILY PO 05/14/21 09:00 05/14/21 08:51 Nifedipine (Procardia Xl) 60 mg DAILY PO 05/14/21 09:00 05/14/21 08:51 Olanzapine (ZyPREXA ZYDIS) 2.5 mg PRN Q2HRS PRN PO ANXIETY / AGITATION 05/13/21 20:30 05/14/21 20:46 Nicotine (Nicoderm Cq 14mg Patch) 1 patch DAILY TD 05/14/21 12:00 Current Medications Medications (Trade) Dose Ordered Sig/Christal Route PRN Reason Start Time Stop Time Status Last Admin Dose Admin Lisinopril (Prinivil) 20 mg DAILY PO 05/14/21 09:00 05/14/21 08:51 Nifedipine (Procardia Xl) 60 mg DAILY PO 05/14/21 09:00 05/14/21 08:51 I have reviewed the current psychotropics carefully including drug interactions. Risk benefit ratio favors no change other than as noted in my dictated progress note. Diagnosis: Problems: (1) Impulse control disorder, unspecified (2) Anxiety disorder, unspecified (3) Dementia, vascular, with depression (4) Dementia, vascular, with delusions (5) Dementia in Alzheimer's disease with depression (6) Dementia in Alzheimer's disease with delusions (7) Dementia of the Alzheimer's type with early onset with behavioral disturbance (8) Major neurocognitive disorder ADRIENNE BOUDREAUX MD May 15, 2021 07:01
[2021-05-15] MEDS: NICOTINE 14MG PATCH. TD SCH (09:00)
[2021-05-15] MEDS: LISINOPRIL 20 MG TABLET PO SCH (09:30)
--- NOTE | 2021-05-15 13:56 | PN ---
DATE: 05/15/2021 ATTENDING PHYSICIANS: Dr. Jones/Dr. Barksdale. SUBJECTIVE: A little more arousable today, he is still bedridden, requiring 24-hour care. He is incontinent and required significant help. remains at the bedside. He is legally blind. OBJECTIVE FINDINGS: VITAL SIGNS: Blood pressure this morning is 128/76. He is afebrile. Pulse is 90 and regular. Oxygen saturation 93% on room air. HEENT: Head is without trauma. Pupils both have covered with cataracts. He is blind in both eyes. NECK: Supple, no bruits. LUNGS: Shallow respirations. CARDIOVASCULAR: Regular heart tones. ABDOMEN: Soft. EXTREMITIES: Show trace edema. NEUROLOGIC: A little more arousable today. ASSESSMENT: 1. An 86-year-old gentleman with profound weakness and hypotension, he has been rehydrated. 2. Multiple previous strokes with residual deficits. 3. Right-sided hemiplegia and dysarthria. 4. Hypertension. 5. 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 6. Severe multi-infarct dementia with sundowning. PLAN: 1. Continued supportive care. 2. Meds reviewed. 3. We were working on longterm placement. is at the bedside. PATRICK DR: Brandy TID: [id number]
[2021-05-15] MEDS ORDERED: IV NORMAL SALINE 1,000ML 1,000 ML IV ONE (15:15)
[2021-05-15] MEDS: traZODone 100 MG TABLET. PO SCH (21:00)
--- NOTE | 2021-05-15 21:28 | PDOC ---
Exam Note: Naveen Note: Please also refer to the separate dictated note~for this date of service dictated separately.~Patient seen individually. Discussed the patient with Nursing staff reviewed the chart.~Reviewed interim history and current functioning. Reviewed vital signs,~Labs/ Radiology~and current medications noted below. Continue current treatment with the changes noted in the dictated addendum note Assessment: Vital Signs/I&O: Vital Signs Date Time Temp Pulse Resp B/P (MAP) Pulse Ox O2 Delivery O2 Flow Rate FiO2 05/15/21 20:44 97.6 71 20 110/64 (79) 92 Room Air I & O 05/14/21 05/14/21 05/15/21 15:00 23:00 07:00 Intake Total 365 ml 25 ml 0 ml Balance 365 ml 25 ml 0 ml Current Medications: Meds: Current Medications Medications (Trade) Dose Ordered Sig/Christal Route PRN Reason Start Time Stop Time Status Last Admin Dose Admin Sodium Chloride 1,000 ml @ 1,000 mls/hr 1X ONCE IV 05/11/21 20:15 05/11/21 21:14 DC 05/11/21 20:15 Sodium Chloride 1,000 ml @ 100 mls/hr Q10H IV 05/11/21 20:15 05/12/21 20:14 DC 05/12/21 14:38 Melatonin (Melatonin) 9 mg PRN QHS PRN PO INSOMNIA 05/11/21 20:30 05/13/21 00:31 Lactated Ringer's 1,000 ml @ 1,000 mls/hr 1X ONCE IV 05/11/21 23:30 05/12/21 00:29 DC 05/11/21 23:30 Lorazepam (Ativan Inj) 2 mg 1X ONCE IVP 05/11/21 23:30 05/11/21 23:31 DC 05/11/21 23:01 Olanzapine (ZyPREXA IM) 2.5 mg PRN Q4HRS PRN IM ANXIETY / AGITATION 05/13/21 07:30 05/13/21 07:37 Melatonin (Melatonin) 9 mg 1X ONCE PO 05/13/21 13:15 05/13/21 13:35 DC 05/13/21 13:47 Trazodone HCl (Desyrel) 100 mg QHS PO 05/13/21 21:00 05/14/21 20:46 Lisinopril (Prinivil) 20 mg DAILY PO 05/14/21 09:00 05/15/21 09:30 Nifedipine (Procardia Xl) 60 mg DAILY PO 05/14/21 09:00 05/15/21 09:30 Olanzapine (ZyPREXA ZYDIS) 2.5 mg PRN Q2HRS PRN PO ANXIETY / AGITATION 05/13/21 20:30 05/14/21 20:46 Nicotine (Nicoderm Cq 14mg Patch) 1 patch DAILY TD 05/14/21 12:00 05/15/21 09:00 Sodium Chloride 1,000 ml @ 1,000 mls/hr 1X ONCE IV 05/15/21 15:15 05/15/21 16:14 DC 05/15/21 15:15 Current Medications Medications (Trade) Dose Ordered Sig/Christal Route PRN Reason Start Time Stop Time Status Last Admin Dose Admin Sodium Chloride 1,000 ml @ 1,000 mls/hr 1X ONCE IV 05/15/21 15:15 05/15/21 16:14 DC 05/15/21 15:15 I have reviewed the current psychotropics carefully including drug interactions. Risk benefit ratio favors no change other than as noted in my dictated progress note. Diagnosis: Problems: (1) Impulse control disorder, unspecified (2) Anxiety disorder, unspecified (3) Dementia, vascular, with depression (4) Dementia, vascular, with delusions (5) Dementia in Alzheimer's disease with depression (6) Dementia in Alzheimer's disease with delusions (7) Dementia of the Alzheimer's type with early onset with behavioral disturbance (8) Major neurocognitive disorder ADRIENNE BOUDREAUX MD May 15, 2021 21:28
[2021-05-16 07:23] VITALS: BP 124/60
[2021-05-16] MEDS: LISINOPRIL 20 MG TABLET PO SCH (09:00)
[2021-05-16] MEDS: NICOTINE 14MG PATCH. TD SCH (09:19)
[2021-05-16 09:24] VITALS: BP 105/61
--- NOTE | 2021-05-16 11:32 | DS ---
DATE OF DISCHARGE: 05/16/2021 ATTENDING PHYSICIAN: Dr. Quiñones. FINAL DISCHARGE DIAGNOSES: 1. An 86-year-old gentleman with dehydration. 2. Weakness, hypotension, corrected. 3. Multiple previous strokes with residual deficits. 4. Right-sided hemiplegia and dysarthria. 5. Essential hypertension. 6. 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 7. Severe multi-infarct dementia with sundowning. HISTORY AND PHYSICAL: The patient is an 86-year-old gentleman, [facility]. He was admitted with multiple medical issues and inability to care for him at home. He was dehydrated. PHYSICAL EXAMINATION: Please see the note by Dr. Quiñones. PERTINENT LABORATORY AND X-RAY STUDIES: Prior to discharge, his hemoglobin was stable at 12.2 g/dL, white count was 7800. Electrolytes, creatinine was 1.5, repeated was down to 1.2 with hydration. Potassium 4.0 mEq. Serology negative for coronavirus. COURSE IN HOSPITAL: The patient was admitted. He was given IV hydration. Meds were simplified. was at the bedside. Dr. Pacheco was consulted. His recommendation for management is on the chart. On the sixth hospital day, arrangements were made for the patient to go to [facility]. The patient was then transferred to [facility] for [facility]. His discharge meds have been simplified. They include the following: He will continue his lisinopril 40 mg daily, nifedipine and Crestor doses unchanged. His prognosis is quite guarded. He was discharged then in a stable condition with explicit drug and followup care. Total discharge time spent was 41 minutes. WISAM/LAURYN DR: Brandy TID: [id number] CC: STEPH QUIÑONES MD
--- NOTE | 2021-05-17 07:11 | PDOC ---
Exam Note: Naveen Note: This note is a late entry for 05/15/2021 covers elements not covered in my initial note. Subjective: Patient was seen individually in the evening of 05/15/2021. Discussed with nursing staff, reviewed the chart. Reportedly the patient has received a Velasquez catheter and since then he has been less agitated and less restless. Review of Systems: No CV, , pulmonary, ENT system symptoms on review per nursing staff. 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 Impaired ambulation. Reliability poor. Mental Status Exam: The patient is oriented to himself. Insight, judgment, recent and remote memory, attention and concentration, fund of knowledge is poor consistent with his diagnosis. Laboratory Data: Reviewed. Impression: Major neurocognitive disorder, Alzheimer, vascular with delusion, depression behavioral disturbance. Anxiety disorder unspecified. Impulse control disorder unspecified. Plan: No change in his psychotropics for now. Reviewed drug interactions and risk-benefit ratio. Assessment: Vital Signs/I&O: Vital Signs Date Time Temp Pulse Resp B/P (MAP) Pulse Ox O2 Delivery O2 Flow Rate FiO2 05/16/21 09:24 72 105/61 05/16/21 07:23 98.4 20 99 Room Air 05/15/21 21:00 2.0 I & O 05/16/21 05/16/21 05/17/21 15:00 23:00 07:00 Intake Total 320 ml Balance 320 ml Current Medications: Meds: Current Medications Medications (Trade) Dose Ordered Sig/Christal Route PRN Reason Start Time Stop Time Status Last Admin Dose Admin Sodium Chloride 1,000 ml @ 1,000 mls/hr 1X ONCE IV 05/11/21 20:15 05/11/21 21:14 DC 05/11/21 20:15 Sodium Chloride 1,000 ml @ 100 mls/hr Q10H IV 05/11/21 20:15 05/12/21 20:14 DC 05/12/21 14:38 Melatonin (Melatonin) 9 mg PRN QHS PRN PO INSOMNIA 05/11/21 20:30 05/16/21 11:33 DC 05/13/21 00:31 Lactated Ringer's 1,000 ml @ 1,000 mls/hr 1X ONCE IV 05/11/21 23:30 05/12/21 00:29 DC 05/11/21 23:30 Lorazepam (Ativan Inj) 2 mg 1X ONCE IVP 05/11/21 23:30 05/11/21 23:31 DC 05/11/21 23:01 Olanzapine (ZyPREXA IM) 2.5 mg PRN Q4HRS PRN IM ANXIETY / AGITATION 05/13/21 07:30 05/16/21 11:33 DC 05/13/21 07:37 Melatonin (Melatonin) 9 mg 1X ONCE PO 05/13/21 13:15 05/13/21 13:35 DC 05/13/21 13:47 Trazodone HCl (Desyrel) 100 mg QHS PO 05/13/21 21:00 05/16/21 11:33 DC 05/14/21 20:46 Lisinopril (Prinivil) 20 mg DAILY PO 05/14/21 09:00 05/16/21 11:33 DC 05/15/21 09:30 Nifedipine (Procardia Xl) 60 mg DAILY PO 05/14/21 09:00 05/16/21 11:33 DC 05/16/21 09:24 Olanzapine (ZyPREXA ZYDIS) 2.5 mg PRN Q2HRS PRN PO ANXIETY / AGITATION 05/13/21 20:30 05/16/21 11:33 DC 05/14/21 20:46 Nicotine (Nicoderm Cq 14mg Patch) 1 patch DAILY TD 05/14/21 12:00 05/16/21 11:33 DC 05/16/21 09:19 Sodium Chloride 1,000 ml @ 1,000 mls/hr 1X ONCE IV 05/15/21 15:15 05/15/21 16:14 DC 05/15/21 15:15 I have reviewed the current psychotropics carefully including drug interactions. Risk benefit ratio favors no change other than as noted in my dictated progress note. Diagnosis: Problems: (1) Impulse control disorder, unspecified (2) Anxiety disorder, unspecified (3) Dementia, vascular, with depression (4) Dementia, vascular, with delusions (5) Dementia in Alzheimer's disease with depression (6) Dementia in Alzheimer's disease with delusions (7) Dementia of the Alzheimer's type with early onset with behavioral disturbance (8) Major neurocognitive disorder ADRIENNE BOUDREAUX MD May 17, 2021 07:11
== END 2021-05-16 11:00 | DRG 640 ==
LOC: ER 17:04 → 1 SOUTH 05-12 06:02
PROVIDERS: ADMIT Internal Medicine; ATTEND Internal Medicine
DX: E86.0 Dehydration (principal); N17.0 Acute kidney failure with tubular necrosis; F02.81 Dementia in other diseases classified elsewhere, unspecified severity, with behavioral disturbance; F05 Delirium due to known physiological condition; I69.351 Hemiplegia and hemiparesis following cerebral infarction affecting right dominant side; I95.9 Hypotension, unspecified; N28.9 Disorder of kidney and ureter, unspecified; G30.9 Alzheimer's disease, unspecified; H54.8 Legal blindness, as defined in USA; I69.322 Dysarthria following cerebral infarction; D64.9 Anemia, unspecified; H40.9 Unspecified glaucoma; I10 Essential (primary) hypertension; F17.210 Nicotine dependence, cigarettes, uncomplicated; F01.50 Vascular dementia, unspecified severity, without behavioral disturbance, psychotic disturbance, mood disturbance, and anxiety; F32.A Depression, unspecified; F41.9 Anxiety disorder, unspecified; F63.9 Impulse disorder, unspecified; Z74.01 Bed confinement status; Z20.822 Contact with and (suspected) exposure to COVID-19
CPT/HCPCS: 36415; 70450; 71045; 71250; 72125; 74176; 80048; 80053; 81001; 84484; 85025; 85027; 87077; 87086; 87426; 93005; 96361; 96374; J2060; J3490; J7120; U0003; 97116; 97530; 99285-25; J7030